=== PATIENT | female | born 1945 | race Caucasian/White ===

== ENCOUNTER 2023-08-27 21:42 | Inpatient (IN) | payer MEDICARE, BC ==
[~2023-08-27] VITALS: Ht 154.9 cm; Wt 64.0 kg
--- NOTE | 2023-08-27 23:56 | NUR ---
Arrived at 2350 via EMS per cart. A/O VSS, denies complaints, oriented to room, plan of care discussed, bed in low locked position, call light within reach, instructed to call for assistace before ambulating
[2023-08-28] VITALS (21 sets, daily range): BP systolic 106–152; BP diastolic 50–79; PULSE 60–167; TEMP 97.3–97.9
[2023-08-28] MEDS ORDERED: TENORMIN100 MG PO (00:31)
[2023-08-28] MEDS ORDERED: KLOR-CON M2020 MEQ PO (00:32)
[2023-08-28] MEDS ORDERED: NORVASC 5MG5 MG/TAB PO (00:33)
[2023-08-28 01:18] LABS: HEMATOCRIT 41.6 % (37.0-47.0); HEMOGLOBIN 13.9 g/dl (12.5-16.0); MEAN CELL VOLUME 83 fl (80.0-100.0); MEAN CORPUSCULAR HEMOGLOBIN 28 pg (27-31); MEAN CORPUSCULAR HGB CONC 33 g/dl (33.0-37.0); MEAN PLATELET VOLUME 10.1 fl (7.4-10.4); PLATELET COUNT 289 K/mm3 (130-400); RED BLOOD COUNT 5.02 M/mm3 (4.10-5.30); REDCELL DISTRIBUTION WIDTH-CV 14.5 % (11.5-14.5)
[2023-08-28 03:57] LABS: ALBUMIN 2.7 gm/dL (3.4-4.8); BILIRUBIN,TOTAL 0.7 mg/dL (0.2-1.2); CALCIUM 8.9 mg/dL (8.4-10.2); CREATININE, serum 0.8 mg/dL (0.57-1.11); POTASSIUM 4.6 mmol/L (3.5-4.5); TOTAL PROTEIN 5.5 gm/dL (6.2-8.1)
[2023-08-28 07:50] LABS: HEMATOCRIT 39.4 % (37.0-47.0); HEMOGLOBIN 13.2 g/dl (12.5-16.0); MEAN CELL VOLUME 84 fl (80.0-100.0); MEAN CORPUSCULAR HEMOGLOBIN 28 pg (27-31); MEAN CORPUSCULAR HGB CONC 34 g/dl (33.0-37.0); MEAN PLATELET VOLUME 10.2 fl (7.4-10.4); PLATELET COUNT 251 K/mm3 (130-400); RED BLOOD COUNT 4.71 M/mm3 (4.10-5.30); REDCELL DISTRIBUTION WIDTH-CV 14.5 % (11.5-14.5)
[2023-08-28 08:08] LABS: ALBUMIN 2.5 gm/dL (3.4-4.8); BILIRUBIN,TOTAL 0.6 mg/dL (0.2-1.2); CALCIUM 8.5 mg/dL (8.4-10.2); CREATININE, serum 0.77 mg/dL (0.57-1.11); POTASSIUM 3.9 mmol/L (3.5-4.5)
[2023-08-28 09:39] LABS: COLLECTION METHOD CLEAN CATCH
--- NOTE | 2023-08-28 10:15 | NUR ---
pt in CT scanner, has no questions, Dr Stanton in room to start procedure
--- NOTE | 2023-08-28 10:19 | NUR ---
PT LAYING IN BED, ALERT AND ORIENTED. PT ONLY HAS PAIN IN THE ABDOMEN WHEN IT IS PRESSED ON AND RATES IT 2/10. ASSESSED AND GAVE PT ANTIBIOTICS. CT TOOK PT DOWN TO PLACE DRAIN IN THE ABDOMEN.
[2023-08-28 10:23] LABS: PH 5.5 (5.0-8.5); URINE APPEARANCE Clear (CLEAR/HAZY); URINE BLOOD Negative (NEGATIVE); URINE COLOR Amber (YELLOW); URINE GLUCOSE Negative (NEGATIVE); URINE KETONE 3+ (NEGATIVE); URINE NITRATE Negative (NEGATIVE); URINE PROTEIN(semi-quant) 1+ (NEGATIVE)
[2023-08-28 10:24] LABS: SQUAMOUS EPITHELIAL 0-2 /hpf (0-10); URINE BACTERIA None Seen /hpf (NONE SEEN); URINE RBC None Seen /hpf (0-2)
--- NOTE | 2023-08-28 10:35 | NUR ---
iv versed 1mg given over 2 min and fentanyl 25mcg iv given over 2 min before lidocaine for numbing started
--- NOTE | 2023-08-28 10:55 | NUR ---
drain in pelvic abcess, approx 10-20 cc of thick light brown fluid removed, speciman places in sterile cup, pt has accordian drain attached to tubing, with sutures and clear tegraderm over site to left middle/lower abd. pt has no c/o, sat up on cart for short time, then assisted to w/c. report called to 3rd surgical nurse of vs, medication and drain site, pt taken to room via staff to 3rd floor, awake and alert.
--- NOTE | 2023-08-28 11:16 | NUR ---
PT ARRIVE BACK FROM DRAIN PLACEMENT. VITALS ARE STABLE, NO COMPLAINTS OF PAIN AT THIS TIME. DRESSING IS CLEAN, DRY, INTACT.
--- NOTE | 2023-08-28 12:46 | NUR ---
strap cutting machine operator met with Daniella's daughter/DPOAHC at bedside to conduct Care Mangment Assessment due to Patient being OOR at a procedure. Patient is reported to live in [place], [place] with her and is established with PCP Dr. Moreno. Patient is covered by [facility] and [facility] for insurance and utilizes [facility] for Rx needs. Patient is reported not to use DME prior to admission and is independent with ADL/IADLs.
--- NOTE | 2023-08-28 20:00 | NUR ---
PATIENT IS ORIENTED BUT DROWSY. VSS ON TELE. NO COMPLAINTS. ABD IS DISTENDED, SOFT AND WITH BOWL SOUNDS PRESENT. ABSCESS DRAIN TO DD. 1 ASSIST TO BEDSIDE COMMODE. POOR PERSONAL HYGIENE, REFUSED HS CARES. HASN'T TAKEN IN MUCH CLEAR LIQUIDS. NO C/O N/V. IV FLUIDS INFUSING VIA PUMP INTO RIGHT WRIST. HEAD TO TOE ASSESSMENT COMPLETE. SCD'S TO BLE. CALL LIGHT IN REACH.
[2023-08-29] VITALS (12 sets, daily range): BP systolic 122–165; BP diastolic 4–75; PULSE 64–70; TEMP 97.4–98.2
[2023-08-29 06:51] LABS: BASO % 0.3 % (0.0-2.0); EOS # 0.1 K/mm3 (0.0-0.7); EOS % 0.8 % (0.0-4.0); GRAN # 6.6 K/mm3 (1.4-6.5); GRAN % 72.5 % (42.2-75.2); HEMATOCRIT 38.7 % (37.0-47.0); HEMOGLOBIN 12.6 g/dl (12.5-16.0); MEAN CELL VOLUME 85 fl (80.0-100.0); MEAN CORPUSCULAR HEMOGLOBIN 28 pg (27-31); MEAN CORPUSCULAR HGB CONC 33 g/dl (33.0-37.0); MEAN PLATELET VOLUME 10.3 fl (7.4-10.4); MONO # 1.3 K/mm3 (0.1-0.6); MONO % 14.8 % (1.7-9.3); PLATELET COUNT 222 K/mm3 (130-400); RED BLOOD COUNT 4.58 M/mm3 (4.10-5.30); REDCELL DISTRIBUTION WIDTH-CV 14.7 % (11.5-14.5)
[2023-08-29 07:03] LABS: CREATININE, serum 0.76 mg/dL (0.57-1.11); POTASSIUM 3.2 mmol/L (3.5-4.5)
--- NOTE | 2023-08-29 09:06 | NUR ---
PT RESTING IN BED. EATING CLEAR LIQUIDS AND TOLERATING WELL. DRESSING TO ACCORDIAN DRAIN CDI. MINIMAL DRAINAGE IN COLLECTION BAG
--- NOTE | 2023-08-29 13:48 | NUR ---
Several visit attempts; Patient now experiencing nausea. Rotary Soil Stabilizer left a card offering God's blessings and spiritual care when patient feels better.
--- NOTE | 2023-08-29 18:56 | NUR ---
REPORT RECIEVED FROM RENETTA LISA. PT RESTING IN BED WATCHING TV. PT DENIES PAIN. CALL LIGHT IN PLACE. BED ALARM ON. ALL NEEDS MET AT THIS TIME.
--- NOTE | 2023-08-29 20:19 | NUR ---
SHIFT ASSESSMENT COMPLETE, SEE DOCUMENTATION. PT DENIES PAIN OR DISCOMFORT. BED ALARM ON. CALL LIGHT IN PLACE. ALL NEEDS MET AT THIS TIME.
[2023-08-30] VITALS (12 sets, daily range): BP systolic 146–189; BP diastolic 53–88; PULSE 64–75; TEMP 97.8–98.4
--- NOTE | 2023-08-30 01:07 | NUR ---
PT RIGHT WRIST IV INFILTRATED WITH NS RUNNING @ 100ML/HR. NEW IV IN THE LEFT AC WITH IVF RUNNING. PT TOLERATED D/C OF RIGHT WRIST IV AND INSERTION OF LEFT AC IV WELL. PT DENIES PAIN. CALL LIGHT IN PLACE. ALL NEEDS MET AT THIS TIME.
--- NOTE | 2023-08-30 03:45 | NUR ---
pt bp was 189/88 on 0400 vs rounds. 10mg hydralazine administered per orders. pt asymptomatic. call light in place. all needs met at this time.
--- NOTE | 2023-08-30 04:45 | NUR ---
prn hydralazine effective. current bp is 146/66. pt continues to be asymptomatic. call light in place. all needs met at this time.
--- NOTE | 2023-08-30 09:46 | NUR ---
PATIENT ALERT AND ORIENTED, BUT SOLOMON. PATIENT HERE FOR DIVERTICULAR ABSCESS. PATIENT DENIES ANY PAIN. DRAIN TO COMPRESSION WITH MINIMAL OUTPUT. NO DRAINAGE IN BAG. IV TO LEFT AC WITH FLUIDS RUNNING AT 100ML/HOUR. PATIENT EXPERIENCING N/V, ZOFRAN ADMINISTERED. PATIENT DENIES PASSING ANY GAS. PATIENT RESTING IN BED, CALL LIGHT IN REACH. NO FURTHER NEEDS AT THIS TIME.
--- NOTE | 2023-08-30 10:15 | NUR ---
Fnp collaborated with Treatment Team to assess Patient for discharge needs and readiness. Physician assesses Patient to need continues assessment and treatment. SW discussed discharge options with Patient. Patient is agreeable to [id number] and requests SW continue this discussion when her daughter is at bedside. GAYLE spoke with PT Richard who states that he does recommend post-acute rehab for discharge services. Discharge Plan: Post-acute rehab.
--- NOTE | 2023-08-30 13:54 | NUR ---
GAYLE Student provided patient and patient's daughter with Medicare.gov list of SNFs in the [facility]. GAYLE Student stated that I would come back and check in with their decisions or they could call with their decision or any questions. Patient's daughter called and stated that their preferences would be [facility], [facility], [facility] and [facility]. GAYLE Student sent referrals.
--- NOTE | 2023-08-30 19:33 | NUR ---
REPORT RECIEVED FROM SMILEY LISA. PT RESTING IN BED WATCHING TV. PT DENIES PAIN OR HAVING ANY NEEDS. CALL LIGHT IN REACH. BED ALARM ON. ALL NEEDS MET AT THIS TIME.
--- NOTE | 2023-08-30 20:12 | NUR ---
SHIFT ASSESSMENT COMPLETE, SEE DOCUMENTATION. PT REPORTS 4/10 PAIN BUT REFUSES PAIN MEDS AT THIS TIME. PT AMBULATED TO BATHROOM UTILIZING WALKER AND GAIT BELT, WITH STEADY GAIT. PT BACK IN BED. BED ALARM ON. CALL LIGHT IN REACH. ALL NEEDS MET AT THIS TIME.
[2023-08-31] VITALS (13 sets, daily range): BP systolic 133–182; BP diastolic 58–71; PULSE 59–71; TEMP 97.6–98.2
[2023-08-31 06:16] LABS: BASO % 0.4 % (0.0-2.0); EOS # 0.1 K/mm3 (0.0-0.7); EOS % 1.1 % (0.0-4.0); GRAN # 5.7 K/mm3 (1.4-6.5); GRAN % 70.3 % (42.2-75.2); HEMOGLOBIN 12.5 g/dl (12.5-16.0); LYMPH % 12.4 % (20.0-51.0); MEAN CELL VOLUME 83 fl (80.0-100.0); MEAN CORPUSCULAR HEMOGLOBIN 28 pg (27-31); MEAN CORPUSCULAR HGB CONC 34 g/dl (33.0-37.0); MEAN PLATELET VOLUME 10.4 fl (7.4-10.4); MONO # 1.2 K/mm3 (0.1-0.6); MONO % 14.9 % (1.7-9.3); PLATELET COUNT 207 K/mm3 (130-400); RED BLOOD COUNT 4.41 M/mm3 (4.10-5.30); REDCELL DISTRIBUTION WIDTH-CV 14.7 % (11.5-14.5)
[2023-08-31 06:18] LABS: HEMATOCRIT 36.8 % (37.0-47.0)
[2023-08-31 06:31] LABS: CREATININE, serum 0.7 mg/dL (0.57-1.11); POTASSIUM 3.7 mmol/L (3.5-4.5)
--- NOTE | 2023-08-31 08:16 | NUR ---
PT SITTING UP EATING CLEAR LIQUIDS, IV RUNNING PER ORDERS, SCANT DRAINAGE IN BAG. POTASSIUM PROTOCOLS FOLLOWED. PT TO GET CT DONE LATE MORNING AND THE POSSIBLE DISCHARGE LATER THIS PM.
--- NOTE | 2023-08-31 15:32 | NUR ---
Staking Engineer was contacted by [facility] who declines Patient due to bed availability. GAYLE contacted Bernadette with [facility] who reports that they can accept Patient today. SW updated physician who states that Patient will need continued treatment and assessment after reviewing CT completed today. SW updated [facility]. SW discussed discharge plan with Patient and davey weston. [facility]. [facility] reports acceptence for 09-03-23 for SNF.
--- NOTE | 2023-08-31 20:03 | NUR ---
Patient assessed at this time, IV infusing well on left AC NS at 100cc/hr, reports nausea but stated she will hold off her nausea meds at this time, SCD's on, remains on room air, dressing on her abscess drain CDI, denies pain, denies further needs, call light and personal items within reach, will continue to monitor.
[2023-09-01] VITALS (11 sets, daily range): BP systolic 135–147; BP diastolic 50–84; PULSE 60–76; TEMP 97.4–98.3
--- NOTE | 2023-09-01 02:08 | NUR ---
Patient resting in bed, eyes closed, looks comfortable, respirations even and unlabored.
[2023-09-01 06:13] LABS: BASO % 0.4 % (0.0-2.0); EOS # 0.2 K/mm3 (0.0-0.7); GRAN # 5.3 K/mm3 (1.4-6.5); GRAN % 68.7 % (42.2-75.2); HEMOGLOBIN 12.2 g/dl (12.5-16.0); LYMPH % 13.4 % (20.0-51.0); MEAN CELL VOLUME 84 fl (80.0-100.0); MEAN CORPUSCULAR HEMOGLOBIN 28 pg (27-31); MEAN CORPUSCULAR HGB CONC 33 g/dl (33.0-37.0); MEAN PLATELET VOLUME 9.8 fl (7.4-10.4); MONO # 1.1 K/mm3 (0.1-0.6); MONO % 14.6 % (1.7-9.3); PLATELET COUNT 192 K/mm3 (130-400); RED BLOOD COUNT 4.39 M/mm3 (4.10-5.30); REDCELL DISTRIBUTION WIDTH-CV 14.9 % (11.5-14.5)
[2023-09-01 06:15] LABS: HEMATOCRIT 36.9 % (37.0-47.0)
[2023-09-01 06:26] LABS: CALCIUM 7.6 mg/dL (8.4-10.2); CREATININE, serum 0.66 mg/dL (0.57-1.11); POTASSIUM 3.6 mmol/L (3.5-4.5)
--- NOTE | 2023-09-01 07:35 | NUR ---
pt asleep upon entry, easily arousable. meds given and assessment complete. pt denies pain and nausea this morning. abscess drain in place w scant amount of bloody output. scds to ble. fall precautions in place. potassium replaced per protocol. fluids infusing in left ac. vss and tele in place. pt denies needs at this time. call light in reach.
--- NOTE | 2023-09-01 10:23 | NUR ---
Red Cap rounds: Patient stated she is tired and not able to eat much. Red Cap provided supportive listening. Doctor arrived to speak with Patient. Red Cap left to allow Patient to have private conversation with Doctor. Red Cap went back to pray for Patient. Patient was sleeping.
--- NOTE | 2023-09-01 19:51 | NUR ---
Patient assessed around this time, see shift assessment, rates pain at 2/10, denies the need for pain meds, denies N/V, IV to left AC flushes amd infusing well, patient's accordion drain was pulled out by the provider from dayshift, gauze dressing CDI, denies further needs, call light and personal items within reach, will continue to monitor.
[2023-09-02] VITALS (12 sets, daily range): BP systolic 108–150; BP diastolic 49–74; PULSE 65–77; TEMP 97.4–98.7
--- NOTE | 2023-09-02 04:37 | NUR ---
Patient up to the bathroom assisted by tech and few minutes after patient called in.This nurse came into her room and in the bathroom patient vomited coffee ground emesis and had a bm of dark brown stools,patient cold and clammy and reports that she's dizzy, took 2 staff to transfer her back to bed using wheelchair, IV zofran given, took vitals, denies any pain, called [facility] at 0453 and received orders for phenergan and IV bolus 250ml and were given, will continue to monitor.
--- NOTE | 2023-09-02 07:20 | NUR ---
pt asleep, easily arousable. oral antibiotic given w applesauce, pt slower with activity this morning. vss and tele in place. scds to ble. freight sales broker unsuccessful obtaining labs this morning, reports oncoming shift will attempt lab draw. fall precautions in place. pt denies pain and feeling less nauseas. abcess drain dressing is cdi. INT to left ac. call light in reach. no needs at this time.
[2023-09-02 08:18] LABS: HEMATOCRIT 40.8 % (37.0-47.0); HEMOGLOBIN 13.5 g/dl (12.5-16.0); MEAN CELL VOLUME 84 fl (80.0-100.0); MEAN CORPUSCULAR HEMOGLOBIN 28 pg (27-31); MEAN CORPUSCULAR HGB CONC 33 g/dl (33.0-37.0); MEAN PLATELET VOLUME 9.7 fl (7.4-10.4); PLATELET COUNT 213 K/mm3 (130-400); RED BLOOD COUNT 4.86 M/mm3 (4.10-5.30); REDCELL DISTRIBUTION WIDTH-CV 15.1 % (11.5-14.5)
[2023-09-02 08:28] LABS: BAND 14 % (0-10); EOSINOPHIL 1 % (0-4); LYMPHOCYTE 16 % (20.0-51.0); NEUTROPHILS 58 % (42.0-75.2)
[2023-09-02 08:29] LABS: ANISOCYTOSIS 1+; PLATELET ESTIMATE NORMAL (NORMAL)
[2023-09-02 08:32] LABS: CREATININE, serum 0.71 mg/dL (0.57-1.11); POTASSIUM 3.7 mmol/L (3.5-4.5)
--- NOTE | 2023-09-02 17:12 | NUR ---
report given to SLOAN Anderson.
--- NOTE | 2023-09-02 20:00 | NUR ---
PATIENT IS A&O. VSS ON TELE. REPORTS MILD, GENERALIZED DISCOMFORT IN BACK. GAVE PRN TYLENOL WITH HS MEDS. PATIENT REPORT LOW APPETITE. FULL LIQUID DIET. IV FLUIDS INFUSING VIA PUMP INTO LEFT AC IV. HEAD TO TOE ASSESSMENT COMPLETE. NO OTHER NEEDS AT THIS TIME. CALL LIGHT IN REACH. BED ALARM ON.
[2023-09-03 00:41] VITALS: BP_SYST 133
[2023-09-03 03:30] VITALS: BP 141/77; PULSE 72; TEMP 97.6
--- NOTE | 2023-09-03 03:35 | NUR ---
PATIENT REPORTS FEELING NAUSEATED. NOTED SEVERAL TISSUES WITH BROWN-TINGED SPIT ON THEM, NO EMESIS. EMESIS BASIN AT BEDSIDE. GAVE PRN IV ZOFRAN.
[2023-09-03 04:39] VITALS: BP_SYST 141
[2023-09-03 06:17] LABS: HEMATOCRIT 43.9 % (37.0-47.0); HEMOGLOBIN 14.7 g/dl (12.5-16.0); MEAN CELL VOLUME 83 fl (80.0-100.0); MEAN CORPUSCULAR HEMOGLOBIN 28 pg (27-31); MEAN CORPUSCULAR HGB CONC 34 g/dl (33.0-37.0); MEAN PLATELET VOLUME 10.3 fl (7.4-10.4); PLATELET COUNT 289 K/mm3 (130-400); RED BLOOD COUNT 5.31 M/mm3 (4.10-5.30); REDCELL DISTRIBUTION WIDTH-CV 15.3 % (11.5-14.5)
[2023-09-03 06:42] LABS: CALCIUM 8.6 mg/dL (8.4-10.2); CREATININE, serum 0.79 mg/dL (0.57-1.11); MAGNESIUM 1.9 mg/dL (1.6-2.6); POTASSIUM 4.3 mmol/L (3.5-4.5)
[2023-09-03 07:06] LABS: BAND 16 % (0-10); EOSINOPHIL 2 % (0-4); LYMPHOCYTE 18 % (20.0-51.0); NEUTROPHILS 49 % (42.0-75.2)
[2023-09-03 07:07] LABS: ANISOCYTOSIS 1+; PLATELET ESTIMATE NORMAL (NORMAL)
[2023-09-03 08:00] VITALS: BP 123/80; PULSE 72; TEMP 98.3
--- NOTE | 2023-09-03 08:00 | NUR ---
pt awake resting in bed, a&ox4. called out for the restroom, pt ambulated with walker and gaitbelt without difficulty. pt had small loose brown bowel movement. assisted pt to recliner for breakfast. meds given and assessment complete. left ac IV leaking with redness around site, IV fluids stopped. vss and tele in place. call light in reach. no needs at this time. fall precautions in place.
[2023-09-03 08:34] VITALS: BP_SYST 123
[2023-09-03] MEDS ORDERED: CIPRO 500MG TA500 MG PO (08:58)
[2023-09-03] MEDS ORDERED: TYLENOL 325MG325 MG PO (08:59)
--- NOTE | 2023-09-03 11:30 | NUR ---
[facility] transportation here for pt. all belongings and paperwork sent with pt. attempted to call report to nurse at [facility], no answer so VM was left to return call.
--- NOTE | 2023-09-03 11:47 | NUR ---
attempted to call report again, no answer
--- NOTE | 2023-09-03 13:42 | NUR ---
Hr Business Partner attended clinical rounds with the team and patient is ready for discharge today. GAYLE met with patient and advised [facility] is able to accept her. Patient is agreeable to this. GAYLE reviewed IM form with patient who verbalized understanding but requested SW call her daughter, Darling and review it with her. GAYLE contacted Darling who inquired about [facility]'s star rating. GAYLE read off star rating from Medicare.gov website. Darling is agreeable to [facility], but asked if [facility] would be an option. GAYLE advised Darling that she contacted Ariane with [facility] and was advised they do not have a bed at this time. Darling verbalized understanding. GAYLE reviewed IM form with Darling who verabalized understanding and provided verbal consent as signature. GAYLE spoke with Bernadette at [facility] and set transport time for 1130. GAYLE faxed discharge orders and discharge summary. GAYLE updated Bernadette that patient's drain was discontinued and she had a bowel movement. Discharge Plan: [facility] SNF
[2023-09-04] MEDS ORDERED: NORVASC 5MG5 MG/TAB PO (00:53)
[2023-09-04] MEDS ORDERED: KLOR-CON M1010 MEQ PO (00:54)
[2023-09-04] MEDS ORDERED: TENORMIN100 MG PO (00:54)
== END 2023-09-03 11:30 | DRG 872 ==
LOC: SURG 21:42
PROVIDERS: Internal Medicine; Physician Assistant; ADMIT Internal Medicine
PROC: 0W9J30Z Drainage of Pelvic Cavity with Drainage Device, Percutaneous Approach (ICD-10-PCS; principal; 2023-08-28)
DX: A41.9 Sepsis, unspecified organism (principal); K56.7 Ileus, unspecified; N32.1 Vesicointestinal fistula; I10 Essential (primary) hypertension; Z66 Do not resuscitate; N73.9 Female pelvic inflammatory disease, unspecified; E11.9 Type 2 diabetes mellitus without complications; E78.5 Hyperlipidemia, unspecified; B96.20 Unspecified Escherichia coli [E. coli] as the cause of diseases classified elsewhere; B95.4 Other streptococcus as the cause of diseases classified elsewhere; B96.89 Other specified bacterial agents as the cause of diseases classified elsewhere; Z88.0 Allergy status to penicillin; Z23 Encounter for immunization
CPT/HCPCS: C1729; C1769; C9113; J0360; J0692; J1836; J2250; J2405; J2550; J3010; J3480; J7030; J7050; J7120; Q9967

== ENCOUNTER 2023-09-03 23:18 | Inpatient (IN) | payer MEDICARE, BC ==
[~2023-09-03] VITALS: Ht 154.9 cm; Wt 78.0 kg
[~2023-09-03 23:18] MED LIST: CIPRO 500MG TA500 MG PO; KLOR-CON M2020 MEQ PO; NORVASC 5MG5 MG/TAB PO; TENORMIN100 MG PO; TYLENOL 325MG325 MG PO
[2023-09-03 23:33] LABS: HEMATOCRIT 45.5 % (37.0-47.0); HEMOGLOBIN 15.2 g/dl (12.5-16.0); MEAN CELL VOLUME 84 fl (80.0-100.0); MEAN CORPUSCULAR HEMOGLOBIN 28 pg (27-31); MEAN CORPUSCULAR HGB CONC 33 g/dl (33.0-37.0); MEAN PLATELET VOLUME 9.7 fl (7.4-10.4); PLATELET COUNT 310 K/mm3 (130-400); REDCELL DISTRIBUTION WIDTH-CV 15.8 % (11.5-14.5)
[2023-09-03 23:51] LABS: ALBUMIN 2.8 gm/dL (3.4-4.8); BILIRUBIN,TOTAL 1.5 mg/dL (0.2-1.2); CALCIUM 8.5 mg/dL (8.4-10.2); CREATININE, serum 1.28 mg/dL (0.57-1.11); POTASSIUM 4.1 mmol/L (3.5-4.5); TOTAL PROTEIN 5.4 gm/dL (6.2-8.1)
[2023-09-04] VITALS (12 sets, daily range): BP systolic 99–152; BP diastolic 41–77; PULSE 66–87; TEMP 97.2–98.5
[2023-09-04 00:10] LABS: ANISOCYTOSIS 1+; BAND 9 % (0-10); BURR CELLS 1+; EOSINOPHIL 1 % (0-4); HYPOCHROMIA 1+; LYMPHOCYTE 19 % (20.0-51.0); NEUTROPHILS 62 % (42.0-75.2); PLATELET ESTIMATE NORMAL (NORMAL)
[2023-09-04] MEDS ORDERED: NORVASC 5MG5 MG/TAB PO (00:53)
[2023-09-04] MEDS ORDERED: TENORMIN100 MG PO (00:54)
[2023-09-04] MEDS ORDERED: KLOR-CON M1010 MEQ PO (00:54)
--- NOTE | 2023-09-04 03:15 | NUR ---
RECEIVED REPORT FROM Jose G NURSEERLIN. WAITING FOR PATIENT ARRIVAL FOR ADMIT TO ROOM 342.
--- NOTE | 2023-09-04 03:30 | NUR ---
PATIENT ARRIVE TO ROOM PER CART FROM E.R. TO ROOM 342. DAUGHTER AT BEDSIDE. INT TO R HAND. OBSERVED PATIENT HAD SMALL AMOUNT OF BROWNISH FOUL SMELLING EMESIS DURING TRANSFERING FROM CART TO BED.
--- NOTE | 2023-09-04 03:40 | NUR ---
INFORMED ONCALL HOSP PROVIDER OF PATIENT'S ARRIVAL TO ROOM 342.
--- NOTE | 2023-09-04 06:15 | NUR ---
18 FR NG (TO LIS) REPLACED BY HOSP PROVIDER TO LEFT NARE AFTER X1 UNSUCCESSFUL ATTEMPT WITH 14 FR NG. PATIENT VOMITED COPIOUS AMOUNT BROWN STOOL SMELLING EMESIS OBSERVED. XR ORDERED BY PROVIDER FOR CONFIRMATION OF NG PLACEMENT.
--- NOTE | 2023-09-04 07:08 | NUR ---
CHANGE OF SHIFT REPORT GIVEN TO DAY SHIFT RNADAN. DAUGHTER AT BEDSIDE. IV ANTIBIOTIC INFUSING WITH NO PROBLEMS. TELE IN PLACE. NO NEEDS REPORTED AT THIS TIME. NG CONTINUES TO LIS, OUTPUT BROWN THAT IS MOSTLY IN TUBING.
[2023-09-04 08:04] LABS: HEMATOCRIT 42.4 % (37.0-47.0); MEAN CELL VOLUME 85 fl (80.0-100.0); MEAN CORPUSCULAR HEMOGLOBIN 28 pg (27-31); MEAN CORPUSCULAR HGB CONC 33 g/dl (33.0-37.0); MEAN PLATELET VOLUME 10.1 fl (7.4-10.4); PLATELET COUNT 235 K/mm3 (130-400); RED BLOOD COUNT 5.02 M/mm3 (4.10-5.30); REDCELL DISTRIBUTION WIDTH-CV 15.8 % (11.5-14.5)
[2023-09-04 08:10] LABS: COLLECTION METHOD CLEAN CATCH
[2023-09-04 08:14] LABS: CALCIUM 7.9 mg/dL (8.4-10.2); CREATININE, serum 1.15 mg/dL (0.57-1.11)
--- NOTE | 2023-09-04 08:27 | NUR ---
PATIENT ALERT AND ORIENTED X2. VSS. PATIENT HERE FOR ABD PAIN, N/V. NG TO LIS WITH NO BROWN OUTPUT. IV TO RIGHT HAND WITH FLUIDS RUNNING AT 125ML/HOUR. PATIENT DENIES ANY PAIN AT THIS TIME. PATIENT RESTING IN BED, CALL LIGHT IN REACH. BED ALARM ON.
[2023-09-04 08:35] LABS: URINE APPEARANCE Clear (CLEAR/HAZY); URINE BLOOD Negative (NEGATIVE); URINE COLOR Amber (YELLOW); URINE GLUCOSE TRACE (NEGATIVE); URINE KETONE 2+ (NEGATIVE); URINE NITRATE Positive (NEGATIVE); URINE PROTEIN(semi-quant) 2+ (NEGATIVE); URINE UROBILINOGEN >8.0 E.U/dL (0.2-1.0)
[2023-09-04 08:36] LABS: URINE BACTERIA Rare /hpf (NONE SEEN)
[2023-09-04 08:37] LABS: URINE RBC None Seen /hpf (0-2)
[2023-09-04 08:49] LABS: BAND 33 % (0-10); BASOPHIL 1 % (0-2); LYMPHOCYTE 19 % (20.0-51.0); METAMYELOCYTE 1 % (0-0); NEUTROPHILS 31 % (42.0-75.2); PLATELET ESTIMATE NORMAL (NORMAL)
--- NOTE | 2023-09-04 10:25 | NUR ---
casino worker was contacted by [facility] regarding updates on patient. SW expressed hospitalist has not rounded on her yet but would send when completed. casino worker met with patient and daughter, Anali, (P# [phone]) to discuss discharge planning. Patient confirmed she lives in [place]. Primary care physician is Dr. Moreno and preferred pharmacy is [facility]. Patient denied any issues being able to afford medications. Patient has a DPOA-HC which appoints Anali as her agent. Patient does not use any DME at home and was independent with ADLS prior to hospitalization. Patient was at [facility] for SNF prior to this hospitalization. Anali expressed they would like her to be evaluated before deciding if she were to return to SNF. Discharge Plan: Possible return to SNF
--- NOTE | 2023-09-04 11:23 | NUR ---
THIS NURSE MADE AWARE OF PATIENT PULLING OUT OWN NG TUBE. PATIENT APPEARS TO BE ASYMPTOMATIC WITH 450ML OUTPUT IN CANISTER. HOSPITALIST AWARE AND FOLLOWING. ORDERS TO REPLACE NG TUBE IS PATIENT BECOMES SYMPTOMATIC.
--- NOTE | 2023-09-04 13:06 | NUR ---
DR FORTE CALLED THIS NURSE AND DISCUSSED SURGERY. THIS NURSE REPORTED PATIENTS INCREASE IN NAUSEA/VOMITING. DR FORTE ORDERED NG TUBE PLACEMENT. THIS NURSE AND CHARGE INSERTED 18F INTO LEFT NARE AT 70CM. PATIENT TOLERATED. OUTPUT CHARTED.
--- NOTE | 2023-09-04 14:49 | NUR ---
PATIENT OFF OF FLOOR FOR SURGERY
--- NOTE | 2023-09-04 19:45 | NUR ---
PATIENT BACK IN ROOM POST-OP AND IS VERY DROWSY. PATIENT IS PALE AND SLEEPING WITH MOUTH OPEN. OXYMASK @ 2L WITH SATS IN LOW 90'S. VSS ON TELE. ABD MIDLINE DSG IS CD&I WITH GAUZE & HYPAFIX. COLOSTOMY WITH WAFER & BAG TO DD, NOTED SMALL AMOUNT OF BROWN LIQUID STOOL. NG TO LIS WITH SMALL AMOUNTS OF DARK, COFFEE GROUND OUTPUT NOTED. PACU & DAY SHIFT REPORT LOW OUTPUT THAT IS TEA COLORED. CLARK TO DD WITH SCANT AMOUNTS OF TEA COLORED URINE POST OP. NPO. IV FLUIDS INFUSING VIA PUMP INTO RIGHT UPPER ARM PICC. HEAD TO TOE ASSESSMENT COMPLETE. SCD'S TO BLE. PATIENT RESTING WITH CALL LIGHT IN REACH. BED ALARM ON.
[2023-09-05] VITALS (128 sets, daily range): BP systolic 90–113; BP diastolic 35–51; PULSE 76–92; TEMP 97.7–99.1; O2SAT 88–100
--- NOTE | 2023-09-05 05:00 | NUR ---
PATIENT'S OSTOMY SUDDENLY HAD LARGE, LIQUID, BROWN/MCCARTNEY OUTPUT THAT LEAKED ALL OVER PATIENT. PATIENT CLEANED UP AND ABD MIDLINE DSG CHANGED. TELE BACK ON. PATIENT 02 NEEDS SLOWLY INCREASED OVER NIGHT. PATIENT NOW ON 4L PER OXYMASK WITH SATS IN LOW 90'S. PATIENT LUNG SOUNDS WET. HOB ELEVATED TO 30-40 DEGREES. LOW URINE OUT PUT THAT IS TEA COLORED. IV FLUIDS INFUSING INTO RIGHT UPPER ARM PICC. PATIENT IS OPENING EYES MORE WHEN STAFF AT BEDSIDE.
[2023-09-05 06:20] LABS: MEAN CELL VOLUME 87 fl (80.0-100.0); MEAN CORPUSCULAR HGB CONC 32 g/dl (33.0-37.0); MEAN PLATELET VOLUME 10.5 fl (7.4-10.4); PLATELET COUNT 230 K/mm3 (130-400); RED BLOOD COUNT 3.59 M/mm3 (4.10-5.30); REDCELL DISTRIBUTION WIDTH-CV 15.8 % (11.5-14.5)
[2023-09-05 06:35] LABS: HEMATOCRIT 31.3 % (37.0-47.0); MEAN CORPUSCULAR HEMOGLOBIN 28 pg (27-31)
[2023-09-05 06:37] LABS: HEMOGLOBIN 10.1 g/dl (12.5-16.0)
[2023-09-05 06:39] LABS: CALCIUM 7.5 mg/dL (8.4-10.2); CREATININE, serum 1.33 mg/dL (0.57-1.11); MAGNESIUM 1.8 mg/dL (1.6-2.6); POTASSIUM 3.5 mmol/L (3.5-4.5)
[2023-09-05 07:12] LABS: BAND 56 % (0-10); LYMPHOCYTE 10 % (20.0-51.0); NEUTROPHILS 27 % (42.0-75.2); PLATELET ESTIMATE NORMAL (NORMAL)
--- NOTE | 2023-09-05 08:22 | NUR ---
PATIENT ALERT AND ORIENTED BUT VERY DROWSY. PATIENT ON 2L OXYMASK. OSTOMY BAG WITH LIQUID OUTPUT. MIDLINE INCISION CDI WITH GAUZE/TAPE. CLARK TO DD WITH TEA COLORED OUTPUT. NG WITH COFFEE GROUND LIKE OUTPUT. ASSESSMENT PERFORMED. PATIENT RESTING IN BED, CALL LIGHT IN REACH.
--- NOTE | 2023-09-05 10:13 | NUR ---
VITAL SIGN CHECK REVEALED BP RUNNING SOFT. CALLED DR MCELROY TO REPORT. VERBAL ORDERS TO APPLY FLUIDS AT 100ML/HOUR AND TO REPORT PATIENT'S STATUS TO DR FORTE. NO OTHER ORDERS AT THIS TIME.
--- NOTE | 2023-09-05 10:17 | NUR ---
CALLED TO REPORT PATIENT UPDATE TO DR FORTE. LEFT A VM TO CALL THIS NURSE BACK.
--- NOTE | 2023-09-05 11:25 | NUR ---
On the surgical floor and spoke with both Dr. King and Dr. Tesfaye regarding patients status. Patient has been boarderline hypotensive. 99/41 with a MAP of 55. She has continued to have little to no output 30cc since the start of shift. Dr. King reports that the patient is more than likely going septic. He went to see the patient and her daughter at this time. Dr. Bravo followed his visit. She came out of the room and reported that the daughter had reported that the patient was a DNR/DNI. We are going to give a 500 cc D5LR. We will follow patient's blood pressure.
--- NOTE | 2023-09-05 15:30 | NUR ---
Again went to check with nurses on the patients status. Upon checking the blood pressure monitor in room; noted the last 5 blood pressure have had MAP's of less than 60. After confering with SLOAN Salas - charge of ICU and noted that MAP should be greater than 65; I spoke with Dr. Bravo regarding status of patient. Last pressure was noted 91/46 with a MAP of 54. Patient continues to have little urine output and has recieved 1500 cc bolus. She continues to have auditory crackles. 02 on at 2l/mask. Dr. Bravo stated to send patient to IMCU for Levaphed for blood pressure support. Chelly RN made aware of transfer orders. Maritza in ICU made aware. Spoke with patients daughter and made aware of patients transfer to ICU
--- NOTE | 2023-09-05 16:09 | NUR ---
Endoscope Technician contacted GAYLE Fleming at [facility] and notified her that patient is being transferred to ICU. GAYLE contacted patient's primary care office and requested a copy of patient's DPOA-HC. GAYLE obtained copy and placed it on chart. It designates her son in law, Yoav and daughter, Anali.
--- NOTE | 2023-09-05 16:20 | NUR ---
REPORT CALLED TO UYEN. PATIENT AND BELONGINGS TRANSPORTED TO ICU BED 1.
--- NOTE | 2023-09-05 19:09 | NUR ---
4553 PT TRANSFERED TO ICU 1. PT ALERT AND ORIENTED. BELONGING WITH DAUGHTER.
--- NOTE | 2023-09-05 19:10 | NUR ---
Received report from SLOAN Williamson.
--- NOTE | 2023-09-05 19:50 | NUR ---
Patient resting quietly in bed. Daughter at bedside. Patient is alert and oriented; vitals within normal limits. She denies any pain or discomfort. Midline incision is clean, dry, and intact. NG remains to LIS at this time with brown output. Ostomy site appears clean, dry, and intact; output is liquid and brown.
[2023-09-06] VITALS (585 sets, daily range): BP systolic 67–111; BP diastolic 45–66; PULSE 20–146; TEMP 97.6–97.9; O2SAT 72–100
--- NOTE | 2023-09-06 04:15 | NUR ---
Patient's ostomy noted to have leaked at wafer edge closest to midline incision. Shadowing evident on midline dressing that was previously clean, dry, and intact. Midline incision cleaned and dressing replaced. Ostomy wafer and bag were also replaced. Some bruising was noted to the lower middle abdomen.
[2023-09-06 05:56] LABS: MEAN CELL VOLUME 85 fl (80.0-100.0); MEAN CORPUSCULAR HGB CONC 33 g/dl (33.0-37.0); MEAN PLATELET VOLUME 10.5 fl (7.4-10.4); PLATELET COUNT 144 K/mm3 (130-400); RED BLOOD COUNT 3.35 M/mm3 (4.10-5.30); REDCELL DISTRIBUTION WIDTH-CV 15.8 % (11.5-14.5)
[2023-09-06 06:03] LABS: HEMATOCRIT 28.5 % (37.0-47.0); HEMOGLOBIN 9.4 g/dl (12.5-16.0); MEAN CORPUSCULAR HEMOGLOBIN 28 pg (27-31)
[2023-09-06 06:18] LABS: BAND 10 % (0-10); CALCIUM 7.3 mg/dL (8.4-10.2); LYMPHOCYTE 7 % (20.0-51.0); MAGNESIUM 1.8 mg/dL (1.6-2.6); NEUTROPHILS 79 % (42.0-75.2); PHOSPHOROUS 2.2 mg/dL (2.3-4.7)
[2023-09-06 06:19] LABS: ANISOCYTOSIS 1+; BURR CELLS 1+; PLATELET ESTIMATE NORMAL (NORMAL); POIKILOCYTOSIS 1+
[2023-09-06 06:24] LABS: POTASSIUM 2.5 mmol/L (3.5-4.5)
--- NOTE | 2023-09-06 06:30 | NUR ---
Report received from SLOAN Cardona; patient currently resting in bed with fluids running through her right upper arm PICC. Patient currently on O2 at 3L via NC and a Salazar catheter is in place. Dr. King removed patient's NG tube this morning and is able to have ice chips and water; may advance diet to clear liqiuds if patient is able to tolerate. Patient is stable and vital signs are within normal limits this morning, with blood pressure on the soft side but not low enough to initiate levophed.
--- NOTE | 2023-09-06 06:30 | NUR ---
Dr. King at bedside. Notified of earlier dressing change. Less than 10mL residual from NG when assessed at 0400.
--- NOTE | 2023-09-06 06:34 | NUR ---
NG removed at this time by Dr. King.
--- NOTE | 2023-09-06 19:05 | NUR ---
Received report from SLOAN Tian.
--- NOTE | 2023-09-06 19:21 | NUR ---
Patient noted to be in AFIB RVR with rates up to the 140s. Patient denies feeling chest pain or SOB. She denies feeling any heart palpitations. Vitals within normal limits. RT notified to obtain EKG. Kelin notified. Orders received. See EMAR.
[2023-09-06 19:57] LABS: CALCIUM 7.3 mg/dL (8.4-10.2); CREATININE, serum 0.81 mg/dL (0.57-1.11); MAGNESIUM 1.8 mg/dL (1.6-2.6); POTASSIUM 3.3 mmol/L (3.5-4.5)
--- NOTE | 2023-09-06 20:28 | NUR ---
Patient noted to be confused. She is alert and converses coherently with staff, however, she is not oriented to place, time, or reason for hospitalization. This is different from this RN's assessment completed yesterday; at that time, patient was A&Ox4. Report received from day nurse did not convey any confusion noted throughout the day. Kelin notified. Orders received for head CT.
--- NOTE | 2023-09-06 23:18 | NUR ---
Patient HR converts to SR at this time. Kelin notified.
[2023-09-06 23:59] LABS: COLLECTION METHOD IN
[2023-09-07] VITALS (1074 sets, daily range): BP systolic 97–127; BP diastolic 47–62; PULSE 64–74; TEMP 97.6–99.1; O2SAT 73–100
[2023-09-07 00:24] LABS: URINE APPEARANCE Clear (CLEAR/HAZY); URINE BLOOD 1+ (NEGATIVE); URINE COLOR Amber (YELLOW); URINE GLUCOSE Negative (NEGATIVE); URINE KETONE TRACE (NEGATIVE); URINE NITRATE Negative (NEGATIVE); URINE PROTEIN(semi-quant) 2+ (NEGATIVE); URINE UROBILINOGEN 0.2 E.U/dL (0.2-1.0)
[2023-09-07 00:26] LABS: MUCOUS Present (NOT PRESENT); URINE BACTERIA Moderate /hpf (NONE SEEN)
[2023-09-07 05:54] LABS: CALCIUM 7.2 mg/dL (8.4-10.2); CREATININE, serum 0.8 mg/dL (0.57-1.11); POTASSIUM 3.6 mmol/L (3.5-4.5)
--- NOTE | 2023-09-07 07:16 | NUR ---
Updated patient's daughter, Anali.
--- NOTE | 2023-09-07 09:21 | NUR ---
PATIENT HAD LEVOPHED INFUSING THIS MORNING FOR BLOOD PRESSURE SUPPORT WITH REPORTED BLOOD PRESSURES OF >100 SYSTOLIC. LEVOPHED ON STANDBY SINCE 834, PRESSURES HOLDING AT >100 SYSTOLIC.
--- NOTE | 2023-09-07 09:47 | NUR ---
Initial visit; Patient resting, two family members were present in her room, one of which welcomed [employer]. [employer] stated that she is here to offer God's Blessigs for healing for Namrata and [employer] will keep her in her prayers. One family member thanked [employer] for stopping.
[2023-09-07 12:50] LABS: MEAN CELL VOLUME 86 fl (80.0-100.0); MEAN CORPUSCULAR HGB CONC 33 g/dl (33.0-37.0); MEAN PLATELET VOLUME 10.6 fl (7.4-10.4); PLATELET COUNT 151 K/mm3 (130-400); RED BLOOD COUNT 3.12 M/mm3 (4.10-5.30); REDCELL DISTRIBUTION WIDTH-CV 16.2 % (11.5-14.5)
[2023-09-07 12:54] LABS: HEMATOCRIT 26.7 % (37.0-47.0); HEMOGLOBIN 8.8 g/dl (12.5-16.0); MEAN CORPUSCULAR HEMOGLOBIN 28 pg (27-31)
--- NOTE | 2023-09-07 19:30 | NUR ---
Received report from day shift nurseElizabeth. Pt is resting in bed with call light within reach. Pt's midline incision is covered with gauze and is clean, dry, and intact. Pt is on amio and LR at this time. Pt's vitals are stable at this time and pt shows no signs of distress.
[2023-09-08] VITALS (508 sets, daily range): BP systolic 110–131; BP diastolic 52–93; PULSE 67–81; TEMP 97.5–99.1; O2SAT 71–100
[2023-09-08 05:00] LABS: CALCIUM 6.9 mg/dL (8.4-10.2); CREATININE, serum 0.7 mg/dL (0.57-1.11); MAGNESIUM 1.8 mg/dL (1.6-2.6)
[2023-09-08 05:03] LABS: POTASSIUM 2.9 mmol/L (3.5-4.5)
--- NOTE | 2023-09-08 06:55 | NUR ---
Pt had an uneventful night. Pt's vitals were stable throughout the night. Pt on LR and Amio. Will give report to day shift nurse.
--- NOTE | 2023-09-08 07:37 | NUR ---
AMIODARONE, LR, POTASSIUM, AND ANTIBIOTIC INFUSING AT THIS TIME. Thomason IN PLACE, COLOSTOMY CHANGED, DRESSING CLEAN, DRY AND INTACT. PATIENT STATES, SHE "FEELS BETTER THAN YESTERDAY."
[2023-09-08 07:53] LABS: MEAN CELL VOLUME 84 fl (80.0-100.0); MEAN CORPUSCULAR HGB CONC 33 g/dl (33.0-37.0); MEAN PLATELET VOLUME 10.7 fl (7.4-10.4); PLATELET COUNT 133 K/mm3 (130-400); RED BLOOD COUNT 3.03 M/mm3 (4.10-5.30); REDCELL DISTRIBUTION WIDTH-CV 16.2 % (11.5-14.5)
[2023-09-08 07:56] LABS: HEMATOCRIT 25.5 % (37.0-47.0); HEMOGLOBIN 8.5 g/dl (12.5-16.0); MEAN CORPUSCULAR HEMOGLOBIN 28 pg (27-31)
--- NOTE | 2023-09-08 12:17 | NUR ---
Retirement Consultant rounds: Patient was sleeping. Retirement Consultant offered silent prayer.
--- NOTE | 2023-09-08 13:44 | NUR ---
PM rounds: Patient was eating lunch and watching the [employer] football game with her Daughter. Flake Drier prayed for them both.
--- NOTE | 2023-09-08 19:49 | NUR ---
Patient up from ICU this afternoon. She has been resting with her daughter at her side. She has denied pain. Vss with tele on. Edema present. Scds Ble. Patient positioned in bed with multiple pillows being used. Elevation of arms & feet due to edema BLE & BUE. Picc to RUE with Amio drip as ordered. Midline abdomen incisions mer intact. Colostomy with output noted in bag. K+ protocol. Bedside report to Sydney to resume cares.
--- NOTE | 2023-09-08 20:00 | NUR ---
Patient assessed at this time, see shift assessment, denies pain or discomfort, still with PICC to right upper arm, with amiodarone drip at 17cc/hr, remains on room air, midline incision CDI, mer intact, with colostomy attached to appliance bag with output, still with kelly to DD, will reposition regularly, SCD's on, with heel protector, denies further needs, call light and personal items within reach, fall precautions in place, bed alarm on.
--- NOTE | 2023-09-08 23:09 | NUR ---
Repositioned patient to her right side, emptied the colostomy bag and drained 400ml of liquid stools, IV flagyl given at this time.
[2023-09-09] VITALS: BP 106/77; PULSE 83; TEMP 98.2
--- NOTE | 2023-09-09 03:33 | NUR ---
Patient repositioned to her left side, catheter care done, denies pain or discomfort, all needs met, will continue to monitor.
[2023-09-09 03:34] VITALS: BP 103/69; PULSE 88; TEMP 97.5
[2023-09-09 06:49] LABS: CALCIUM 6.8 mg/dL (8.4-10.2); CREATININE, serum 0.74 mg/dL (0.57-1.11); MAGNESIUM 1.8 mg/dL (1.6-2.6); POTASSIUM 3.5 mmol/L (3.5-4.5)
[2023-09-09 07:22] VITALS: BP 112/56; PULSE 79; TEMP 97.6
--- NOTE | 2023-09-09 08:49 | NUR ---
PT LAYING IN BED, PRETTY SLEEPY BUT WAKES TO TALKING TO, ALERT AND ORIENTED. NO COMPLAINTS OF PAIN AT THIS TIME. PT ABDOMINAL ADAN ARE IN TACT. ASSESSED AND GAVE MORNING MEDS. CALL LIGHT WITHIN REACH.
--- NOTE | 2023-09-09 10:15 | NUR ---
GAYLE faxed clinical updates to [facility] 10:15 am.
[2023-09-09 11:18] VITALS: BP 109/42; PULSE 74; TEMP 97.7
[2023-09-09 16:02] VITALS: BP 154/58; PULSE 86; TEMP 98.5
[2023-09-09 19:13] VITALS: BP 128/54; PULSE 92; TEMP 98.2
--- NOTE | 2023-09-09 21:00 | NUR ---
Patient assessed at this time, see shift assessment, still with PICC to right upper arm infusing well, with amio drip at 17cc/hr, colostomy bag draining brown liquid stools and ostomy appliance was replaced by dayswaft nurse today, robin to ABEBA, repositioned patient to her right side, SCD's and QUIN's on, denies N/V, denies further needs, call light and personal items within reach, will continue to monitor.
[2023-09-10] VITALS (7 sets, daily range): BP systolic 107–149; BP diastolic 44–85; PULSE 46–94; TEMP 97.5–98.1
--- NOTE | 2023-09-10 03:15 | NUR ---
Repositioned patient to her left side, colostomy bag drained with 150ml of loose stools.
[2023-09-10 07:18] LABS: CREATININE, serum 0.71 mg/dL (0.57-1.11); POTASSIUM 3.3 mmol/L (3.5-4.5)
--- NOTE | 2023-09-10 08:00 | NUR ---
Patient sleeping soundly. Made Cary aware patient still on Amniodrip
--- NOTE | 2023-09-10 10:00 | NUR ---
Patient repositioned in bed, attempted to assist her to eat, minimal appetite. Hospitalist team rounded. PLan of care reviewed
--- NOTE | 2023-09-10 12:29 | NUR ---
relay worker attempted to speak with patient and she was drowsy, she approved for SW to call her daughter Anali [phone]. Patient called dtr and attempted to give updates about discharging today. Anali was busy and passed the phone to her spouse Benito. Benito was informed that per the DrSadia she was clinically able to go today to [facility]. He approved of this and said his had questions about the PIC line and kelly catheter that she has before going. GAYLE said she would ask the DrSadia about this. GAYLE attempted to reach Bernadette at [facility] this morning. Anali called GAYLE and said she was concerned about the PIC line and Kelly. She wanted two satisfactions services sent- a medicare and hospital one to her address. Anali said she was informed her mother was being "non-compliant" with PT/OT. She said "as you know, they do not come on the weekend so how is that true?" GAYLE was not able to mention the recent PT note in the file. She requested that the provider call her regarding the medical questions she had and preferred Dr. Bravo. GAYLE informed her that she was not sure who was available today, but she would notify them. QUIANA Herrera and Dr. Jarquin notified. GAYLE notified Iban to do service recovery regarding this patient's daughter's dissatisfaction. Bernadette from [facility] was able to accept pt tentatively around 1pm and had questions about oral antibiotics being needed, the kelly, and the PICC line. GAYLE followed this up with QUIANA Herrera who advised it would be best not to have her discharge today. GAYLE informed Bernadette. GAYLE then called Anali to inform her of this change and that it will be tomorrow. Dtr said "So, is she in the same room? Being checked on, and taken care of?" SW informed her she has not moved, will discharge tomorrow, and is being checked on per routine. Discharge plan: [facility] tomorrow
--- NOTE | 2023-09-10 13:16 | NUR ---
Updates sent to Bernadette at [facility].
--- NOTE | 2023-09-10 14:10 | NUR ---
Patient sat up in bed, attempted to give her cardiac medications whole & unable to swallow. Medications we crushed with Rahul appiah made aware & ST consult obtained. Drip stopped. Continue to encourage PO intake.
--- NOTE | 2023-09-10 18:50 | NUR ---
Patient resting in bed. Daughter at bedside. Plan of care reviewed. Patient has not yet voided since kelly removal. Bladder scanned by DONOR RELATIONS MANAGER 149mls. Completed bed bath. Patient repositioned in bed. Attempted again to feed her, minimal appetite. Slowly finishing her K+. Colostomy with adequate output. Midline mer intact. Bedside report to Erica.
--- NOTE | 2023-09-10 19:30 | NUR ---
REPORT RECIEVED FROM VELMA LISA. PT RESTING IN BED WITH DAUGHTER AT BEDSIDE. PT DENIES PAIN. CALL LIGHT IN PLACE. ALL NEEDS MET AT THIS TIME.
--- NOTE | 2023-09-10 22:11 | NUR ---
SHIFT ASSESSMENT COMPLETE, SEE DOCUMENTATION. PT DENIES PAIN. PT HAS SOME REDNESS TO BOTTOM AND PT CONTINUES WITH REPOSITIONING AND INCONTINENCE CARE. PT CLARK PULLED ON PREVIOUS SHIFT AND PT HAS YET TO URINATE. BLADDER SCANNED AND ONLY HAD 153ML IN BLADDER. PT DENIES THE URGE TO URINATE. CALL LIGHT IN PLACE. ALL NEEDS MET AT THIS TIME.
--- NOTE | 2023-09-10 22:55 | NUR ---
SPOKE WITH QUIANA ONOFRE REGARDING PT LOW URINE OUTPUT. LR ORDERED FOR MAINTENENCE FLUIDS. ALL NEEDS MET AT THIS TIME.
[2023-09-11 03:17] VITALS: BP 119/60; PULSE 89; TEMP 98.5
--- NOTE | 2023-09-11 04:14 | NUR ---
CALLED QUIANA ONOFRE TO RELAY PT STILL HAS NO URINE OUTPUT. BLADDER SCAN SHOWED 217ML. NO NEW ORDERS AT THIS TIME. MAINTENENCE FLUIDS WILL BE CONTINUED.
[2023-09-11 07:22] VITALS: BP 110/47; PULSE 51; TEMP 97.7
--- NOTE | 2023-09-11 07:33 | NUR ---
PATIENT ALERT AND ORIENTED X3. VSS. PATIENT HERE FOR AB PAIN, S/P COLOSTOMY PLACEMENT, NG TUBE, ICU TX. PATIENT DENIES ANY PAIN AT THIS TIME. PATIENT ON ROOM AIR. PICC TO RIGHT UPPER ARM WITH LR RUNNING AT 75ML/HOUR. MIDLINE INCISION WITH ADAN INTACT. BLE EDEMA +1, HANDS +2. PATIENT ON BED PAIN, VOIDED MINIMAL OUTPUT. COLOSTOMY WITH SMALL AMOUNT OF OUTPUT THIS AM. MEPILEX TO BOTTOM, BLANCHABLE BUT SLIGHTLY REDDENED. HEEL PROTECTORS ON, FEET FLOATED. PATIENT DENIES ANY FURTHER NEEDS AT THIS TIME. CALL LIGHT IN REACH, BED ALARM ON.
[2023-09-11 08:09] LABS: BASO % 0.5 % (0.0-2.0); EOS # 0.1 K/mm3 (0.0-0.7); EOS % 0.8 % (0.0-4.0); GRAN # 4.7 K/mm3 (1.4-6.5); HEMOGLOBIN 8.9 g/dl (12.5-16.0); LYMPH # 0.6 K/mm3 (1.2-3.4); LYMPH % 8.8 % (20.0-51.0); MEAN CELL VOLUME 85 fl (80.0-100.0); MEAN CORPUSCULAR HEMOGLOBIN 28 pg (27-31); MEAN CORPUSCULAR HGB CONC 33 g/dl (33.0-37.0); MEAN PLATELET VOLUME 9.1 fl (7.4-10.4); MONO # 1.1 K/mm3 (0.1-0.6); MONO % 16.5 % (1.7-9.3); PLATELET COUNT 115 K/mm3 (130-400); RED BLOOD COUNT 3.19 M/mm3 (4.10-5.30); REDCELL DISTRIBUTION WIDTH-CV 16.2 % (11.5-14.5)
[2023-09-11 08:21] LABS: CALCIUM 7.1 mg/dL (8.4-10.2); CREATININE, serum 0.66 mg/dL (0.57-1.11); POTASSIUM 3.3 mmol/L (3.5-4.5)
[2023-09-11 11:51] VITALS: BP 113/66; PULSE 93; TEMP 98.1
[2023-09-11] MEDS ORDERED: CIPRO 500MG TA500 MG PO (13:10)
[2023-09-11] MEDS ORDERED: ELIQUIS 5MG PO (13:13)
[2023-09-11] MEDS ORDERED: FLAGYL500 MG PO (13:13)
[2023-09-11] MEDS ORDERED: MAG-OX 400400 MG/TAB PO (13:15)
[2023-09-11] MEDS ORDERED: CORDARONE200 MG/TAB PO (13:15)
[2023-09-11 15:27] VITALS: BP 109/78; PULSE 81; TEMP 98.3
--- NOTE | 2023-09-11 15:43 | NUR ---
PICC LINE REMOVED VIA [facility]. PATIENT LYING FLAT FOR 30MINUTES.
--- NOTE | 2023-09-11 16:21 | NUR ---
Aerial Gunner attended clinical rounds with the team and Hospitalist advised patient is ready for discharge today. There were some concerns with discharge today which were reviewed with Hospitalist. SW contacted patient's daughter, Anali who would prefer patient discharge today to [facility]. GAYLE contacted Bernadette at [facility] and emailed updates. Bernadette advised they can accept and will mixing picker tender patient between [phone]. GAYLE contacted patient's daughter, Anali to provide transport time. GAYLE provided discharge orders to Bernadette via secure email. Discharge Plan: [facility]
--- NOTE | 2023-09-11 16:30 | NUR ---
ATTEMPTED TO CALL REPORT X2 TO LORNA AT [facility]. SCIENCE EDITOR GAVE THIS NURSE A CELL PHONE NUMBER TO CALL REPORT. ATTEMPTED TO CALL THAT NUMBER. PACKET AND PATIENT BELONGINGS WITH TRANSPORTER. CHARGE NURSE AWARE OF SITUATION.
== END 2023-09-11 16:32 | DRG 391 ==
LOC: COL.ER 23:18 → SURG 09-04 02:17 → ICU 09-05 15:30 → SURG 09-08 15:53
PROVIDERS: Emergency Medicine; Internal Medicine; Nurse Practitioner Family; ADMIT Internal Medicine
DX: K57.32 Diverticulitis of large intestine without perforation or abscess without bleeding (principal); A41.9 Sepsis, unspecified organism; J96.01 Acute respiratory failure with hypoxia; N17.9 Acute kidney failure, unspecified; I95.9 Hypotension, unspecified; E87.6 Hypokalemia; E83.39 Other disorders of phosphorus metabolism; I48.91 Unspecified atrial fibrillation
CPT/HCPCS: A4314; A9284; C1751; C9113; J0282; J0744; J1100; J1170; J1650; J1836; J2405; J2704; J3010; J3475; J3480; J7040; J7050; J7060; J7120; J7121; Q3014; Q9967